=== PATIENT | male | born 1980 | race Caucasian/White ===

== ENCOUNTER 2023-12-15 17:17 | Emergency (ER) | payer OTHER ==
[~2023-12-15] VITALS: Ht 172.7 cm; Wt 80.0 kg
[2023-12-15 17:27] VITALS: BP 134/94; PULSE 115; RESP 16; TEMP 98; O2SAT 100
== END 2023-12-15 17:51 | disposition home or self-care (01) ==
LOC: ER 17:17
DX: F15.10 Other stimulant abuse, uncomplicated (principal)
CPT/HCPCS: 99281